=== PATIENT | male | born 1975 | race Caucasian/White ===

== ENCOUNTER 2018-08-02 12:53 | Observation (INO) | payer OTHER ==
[~2018-08-02] VITALS: Ht 182.9 cm; Wt 72.6 kg
[2018-08-02 13:49] LABS: Source, Urine Clean Catch
[2018-08-02 13:58] LABS: BASOPHILS ABSOLUTE AUTO 0.05 K/mm3 (0.00-0.23); BASOPHILS PERCENT AUTO 1 % (0-2); EOSINOPHILS ABSOLUTE AUTO 0.13 K/mm3 (0.00-0.68); EOSINOPHILS PERCENT AUTO 3 % (0-6); Hematocrit 42.8 % (37.0-53.0); Hemoglobin 14.2 g/dL (13.5-17.5); IMMATURE GRAN PERCENT AUTO 0 % (0-1); LYMPHOCYTES PERCENT AUTO 38 % (21-46); MONOCYTES ABSOLUTE AUTO 0.37 K/mm3 (0.16-1.47); MONOCYTES PERCENT AUTO 9 % (4-13); Mean Corpuscular HGB 29.8 pg (26.0-34.0); Mean Corpuscular HGB Conc 33.2 g/dL (31.5-36.5); Mean Corpuscular Volume 90 fL (80-100); Mean Platelet Volume 11.5 fL (9.1-12.4); NEUTROPHILS ABSOLUTE AUTO 1.88 K/mm3 (1.96-9.15); NEUTROPHILS PERCENT AUTO 48 % (41-73); Platelet Count 156 K/mm3 (150-400); RDW Coefficient Variation 12.4 % (11.7-14.2); RDW Standard Deviation 41.3 fL (35.1-46.3); Red Blood Cell Count 4.76 M/mm3 (4.30-5.90); White Blood Cell Count 3.93 K/mm3 (4.00-11.30)
[2018-08-02 14:01] LABS: Bilirubin, Urine Neg (Neg); Blood, Urine Neg (Neg); Glucose Qualitative, Urine Neg (Neg); Ketones, Urine Neg (Neg); Leukocyte Esterase, Urine Neg (Neg); Nitrite, Urine Neg (Neg); Protein, Urine Neg (Neg); Urobilinogen, Urine NORM (Normal)
[2018-08-02 14:14] LABS: Appearance, Urine Clear (Clear); Color, Urine Yellow (P-Yellow)
[2018-08-02 14:31] LABS: Ethanol (Alcohol), Blood, Med <3 mg/dL
[2018-08-02 14:32] LABS: Alanine Aminotransfer (ALT/SGP 41 U/L (12-78); Albumin, Blood 3.7 g/dL (3.4-5.0); Albumin/Globulin Ratio 1.1 (0.8-1.8); Alk Phos 63 U/L (50-136); Anion Gap 5 mmol/L (6-16); Aspartate Aminotrans (AST/SGOT 36 U/L (12-37); Bilirubin, Total 0.4 mg/dL (0.1-1.0); Blood Urea Nitrogen 20 mg/dL (8-24); Bun/Creatinine Ratio 22.3 (12.0-20.0); CO2, Blood 29 mmol/L (21-32); Calcium, Blood 8.4 mg/dL (8.5-10.1); Chloride, Blood 106 mmol/L (98-108); Free Thyroxine 0.76 ng/dL (0.70-1.60); Globulin, Blood 3.4 g/dL (2.2-4.0); Glomerular Filtration Rate >60 (60-); Glucose, Blood 111 mg/dL (70-99); Potassium, Blood 4.4 mmol/L (3.5-5.5); Salicylate 1.8 mg/dL (2.8-20.0); Sodium, Blood 140 mmol/L (136-145); Total Protein, Blood 7.1 g/dL (6.4-8.2)
[2018-08-02 14:34] LABS: Thyroid Stimulating Hormone 0.764 uIU/mL (0.360-4.800)
[2018-08-02 14:39] LABS: Acetaminophen, Random <2.0 ug/mL (10.0-30.0)
[2018-08-02 15:16] LABS: U Amphetamine Screen Not Detected; U Barbituate Screen Not Detected; U Benzodiazapine Screen Not Detected; U Buprenorphine Screen Not Detected; U Cannabinoids Screen DETECTED; U Cocaine Screen Not Detected; U Methadone Screen Not Detected; U Methamphetamine Screen Not Detected; U Opiates Screen Not Detected; U Oxycodone Screen Not Detected; U Phencyclidine Screen Not Detected; U Propoxyphene Screen Not Detected
== END 2018-08-05 15:15 | disposition home or self-care (01) ==
LOC: ER 12:53 → EOR 12:54
PROVIDERS: ADMIT Emergency Medicine
DX: F12.959 Cannabis use, unspecified with psychotic disorder, unspecified (principal); R45.1 Restlessness and agitation; F17.200 Nicotine dependence, unspecified, uncomplicated
CPT/HCPCS: 36415; 80053; 81003; 84439; 84443; 85025; 99285; G0378; G0480; Q3014

== ENCOUNTER 2022-03-01 09:53 | Emergency (ER) | payer OTHER ==
[~2022-03-01] VITALS: Ht 182.9 cm; Wt 90.7 kg
[2022-03-01] MEDS ORDERED: IBUP800 PO (11:08)
[2022-03-01] MEDS ORDERED: Robaxin750 MG PO (11:08)
== END 2022-03-01 11:17 | disposition home or self-care (01) ==
LOC: ER 09:53
DX: M54.50 Low back pain, unspecified (principal); F17.200 Nicotine dependence, unspecified, uncomplicated
CPT/HCPCS: 96372; 99283-25; A9270; J1885

== ENCOUNTER 2022-09-20 18:31 | Emergency (ER) | payer OTHER ==
[~2022-09-20] VITALS: Ht 180.3 cm; Wt 95.2 kg
[~2022-09-20 18:31] MED LIST: IBUP800 PO; Robaxin750 MG PO
[2022-09-20 18:41] VITALS: BP 135/102
== END 2022-09-20 20:15 | disposition home or self-care (01) ==
LOC: ER 18:31
DX: M25.561 Pain in right knee (principal); M25.531 Pain in right wrist; M79.671 Pain in right foot; F17.200 Nicotine dependence, unspecified, uncomplicated; W01.0XXA Fall on same level from slipping, tripping and stumbling without subsequent striking against object, initial encounter
CPT/HCPCS: 73110; 73562-RT; 73630; 99283-25

== ENCOUNTER → 2024-01-04 | Outpatient (CLI) | payer OTHER ==
[2024-01-04 10:16] LABS: BASOPHILS ABSOLUTE AUTO 0.07 K/mm3 (0.00-0.23); BASOPHILS PERCENT AUTO 1 % (0-2); EOSINOPHILS ABSOLUTE AUTO 0.18 K/mm3 (0.00-0.68); EOSINOPHILS PERCENT AUTO 3 % (0-6); Hematocrit 48.4 % (37.0-53.0); Hemoglobin 16.5 g/dL (13.5-17.5); IMMATURE GRAN ABSOLUTE AUTO 0.01 K/mm3 (0.00-0.10); IMMATURE GRAN PERCENT AUTO 0 % (0-1); LYMPHOCYTES ABSOLUTE AUTO 2.21 K/mm3 (0.84-5.20); LYMPHOCYTES PERCENT AUTO 42 % (21-46); MONOCYTES ABSOLUTE AUTO 0.42 K/mm3 (0.16-1.47); MONOCYTES PERCENT AUTO 8 % (4-13); Mean Corpuscular HGB 29.2 pg (26.0-34.0); Mean Corpuscular HGB Conc 34.1 g/dL (31.5-36.5); Mean Corpuscular Volume 86 fL (80-100); Mean Platelet Volume 10.8 fL (9.1-12.4); NEUTROPHILS ABSOLUTE AUTO 2.36 K/mm3 (1.96-9.15); NEUTROPHILS PERCENT AUTO 45 % (41-73); Platelet Count 187 K/mm3 (150-400); RDW Coefficient Variation 12.8 % (11.7-14.2); RDW Standard Deviation 39.3 fL (35.1-46.3); Red Blood Cell Count 5.65 M/mm3 (4.30-5.90); White Blood Cell Count 5.25 K/mm3 (4.00-11.30)
[2024-01-04 10:31] LABS: Albumin, Blood 3.6 g/dL (3.4-5.0); Albumin/Globulin Ratio 0.9 (0.8-1.8); Bilirubin, Total 0.2 mg/dL (0.1-1.0); Calcium, Blood 9.2 mg/dL (8.5-10.1); Creatinine, Blood 1.07 mg/dL (0.60-1.20); Globulin, Blood 3.9 g/dL (2.2-4.0); Potassium, Blood 4.5 mmol/L (3.5-5.5); Total Protein, Blood 7.5 g/dL (6.4-8.2)
== END ==
LOC: LAB 10:11 → LAB SHORT 10:11
PROVIDERS: Physician Assistant Surgical
DX: R10.9 Unspecified abdominal pain (principal)
CPT/HCPCS: 80053; 85025

== ENCOUNTER 2024-02-05 16:35 | Observation (INO) | payer OTHER ==
[~2024-02-05] VITALS: Ht 177.8 cm; Wt 104.3 kg
[2024-02-05 17:27] LABS: Source, Urine Clean Catch
[2024-02-05 17:38] LABS: BASOPHILS ABSOLUTE AUTO 0.05 K/mm3 (0.00-0.23); BASOPHILS PERCENT AUTO 1 % (0-2); EOSINOPHILS ABSOLUTE AUTO 0.15 K/mm3 (0.00-0.68); EOSINOPHILS PERCENT AUTO 2 % (0-6); Hematocrit 46.1 % (37.0-53.0); Hemoglobin 15.5 g/dL (13.5-17.5); IMMATURE GRAN ABSOLUTE AUTO 0.01 K/mm3 (0.00-0.10); IMMATURE GRAN PERCENT AUTO 0 % (0-1); LYMPHOCYTES ABSOLUTE AUTO 2.01 K/mm3 (0.84-5.20); LYMPHOCYTES PERCENT AUTO 27 % (21-46); MONOCYTES ABSOLUTE AUTO 0.69 K/mm3 (0.16-1.47); MONOCYTES PERCENT AUTO 9 % (4-13); Mean Corpuscular HGB 29.2 pg (26.0-34.0); Mean Corpuscular HGB Conc 33.6 g/dL (31.5-36.5); Mean Corpuscular Volume 87 fL (80-100); Mean Platelet Volume 10.6 fL (9.1-12.4); NEUTROPHILS ABSOLUTE AUTO 4.62 K/mm3 (1.96-9.15); NEUTROPHILS PERCENT AUTO 61 % (41-73); Platelet Count 178 K/mm3 (150-400); RDW Coefficient Variation 12.3 % (11.7-14.2); RDW Standard Deviation 39.2 fL (35.1-46.3); White Blood Cell Count 7.53 K/mm3 (4.00-11.30)
[2024-02-05 17:39] LABS: Appearance, Urine Clear (Clear); Bilirubin, Urine Neg (Neg); Blood, Urine Neg (Neg); Glucose Qualitative, Urine Neg (Neg); Ketones, Urine Neg (Neg); Leukocyte Esterase, Urine Neg (Neg); Nitrite, Urine Neg (Neg); Protein, Urine Neg (Neg); Urobilinogen, Urine NORM (Normal)
[2024-02-05 17:47] LABS: Color, Urine Pale Yellow (P-Yellow)
[2024-02-05 18:00] LABS: U Amphetamine Screen Not Detected; U Barbituate Screen Not Detected; U Benzodiazapine Screen Not Detected; U Buprenorphine Screen Not Detected; U Cannabinoids Screen Not Detected; U Cocaine Screen Not Detected; U Methadone Screen Not Detected; U Methamphetamine Screen Not Detected; U Opiates Screen Not Detected; U Oxycodone Screen Not Detected; U Phencyclidine Screen Not Detected
[2024-02-05 18:08] LABS: Salicylate 2.1 mg/dL (2.8-20.0)
[2024-02-05 18:20] LABS: Ethanol (Alcohol), Blood, Med <3 mg/dL
[2024-02-05 18:28] LABS: Acetaminophen, Random <2.0 ug/mL (10.0-30.0); Alanine Aminotransfer (ALT/SGP 34 U/L (12-78); Albumin, Blood 3.7 g/dL (3.4-5.0); Alk Phos 84 U/L (50-136); Anion Gap 10 mmol/L (3-11); Aspartate Aminotrans (AST/SGOT 26 U/L (12-37); Bilirubin, Total 0.4 mg/dL (0.1-1.0); Blood Urea Nitrogen 17 mg/dL (8-24); Bun/Creatinine Ratio 17.1 (12.0-20.0); CO2, Blood 30 mmol/L (21-32); Calcium, Blood 8.7 mg/dL (8.5-10.1); Chloride, Blood 101 mmol/L (98-108); Creatinine, Blood 0.99 mg/dL (0.60-1.20); Globulin, Blood 3.8 g/dL (2.2-4.0); Glomerular Filtration Rate 95 (60-); Glucose, Blood 81 mg/dL (70-99); Potassium, Blood 3.6 mmol/L (3.5-5.5); Sodium, Blood 137 mmol/L (136-145); Total Protein, Blood 7.5 g/dL (6.4-8.2)
[2024-02-05] MEDS ORDERED: LORazepam 1 MG Tab PO ONE (18:50)
[2024-02-05 19:44] LABS: Influenza A, PCR NEGATIVE (NEGATIVE); Influenza B, PCR NEGATIVE (NEGATIVE); Resp Syncytial Virus, PCR NEGATIVE (NEGATIVE); SARS-Cov-2 (COVID-19) PCR, MMC NEGATIVE (NEGATIVE)
[2024-02-06 08:54] VITALS: BP 134/90
[2024-02-06] MEDS ORDERED: Ibuprofen 400 MG Tab PO ONE (14:20)
== END 2024-02-06 15:05 | disposition other institution (70) ==
LOC: ER 16:35 → EOR 16:36
PROVIDERS: Physician Assistant; ADMIT Emergency Medicine
DX: F33.3 Major depressive disorder, recurrent, severe with psychotic symptoms (principal); R45.851 Suicidal ideations; F17.210 Nicotine dependence, cigarettes, uncomplicated
CPT/HCPCS: 0241U; 36415; 80053; 80320; 81003; 85025; 86592; 93005; 93010; 99285-25; A9270; G0378; G0480

== ENCOUNTER 2024-02-06 10:06 | Inpatient (IN) | payer OTHER ==
[2024-02-06] MEDS ORDERED: Acetaminophen 325 MG TABLET PO PRN (12:10)
[2024-02-06] MEDS ORDERED: Ibuprofen 600 MG Tab PO PRN (12:10)
[2024-02-06] MEDS ORDERED: Aluminum Hydroxide 320MG/5ML 473 ML PO PRN (12:15)
[2024-02-06] MEDS ORDERED: Zolpidem Tartrate 5 MG Tab PO PRN (12:15)
[2024-02-06] MEDS ORDERED: FLU VACC TS2024-25(6MOS UP)/PF 45 MCG/0.5 ML SYRINGE IM SCH (12:15)
[2024-02-06 15:23] VITALS: BP 147/99
[2024-02-06 16:11] VITALS: BP 147/99
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
--- NOTE | 2024-02-06 20:53 | NUR ---
Patient very anxious at HS regarding increasing anxiety and racing thoughts that seem to get worse once he lays down and tries to sleep. Will notify MD regarding situation. Currently, patient only has Ambien at bedtime. Will continue monitoring for safety and any escalation of symptoms. Order received for Seroquel. Will give as soon as available.
[2024-02-06] MEDS ORDERED: QUEtiapine Fumarate 200 MG Tab PO ONE (21:00)
[2024-02-06 22:11] VITALS: BP 151/93
--- NOTE | 2024-02-06 22:18 | NUR ---
pATIENT RESTING COMFORTABLY. STATES HE HAS NOT HAD SI SINCE LAST ASSESSMENT. STILL C/O INABILITY TO STOP THINKING ABOUT HIS AND THE HEALTH OF HIS MOTHER WHO HAS BEEN NEWLY DIAGNOSED WITH CANCER AND PLAYS AN INTEGRAL ROLE IN HELPING HIM RAISE HIS 9 YEAR OLD SON. STATES HE DOES FEEL BETTER NOW THAN AN HOUR AGO BEFORE HE TOOK THE SEROQUEL. WILL CONTINUE CLOSE MONITORING EVERY 15 MINUTES FOR SAFETY
--- NOTE | 2024-02-07 04:22 | NUR ---
Patient is A&OX4, pleasant and cooperative with cares. He was anxious about trying to lay down and go to sleep with the racing thoughts he had been having with regard to his family. Order for Seroquel received and given and patient is having what appears to be a very restful sleep. Patient stated he did not feel suicidal at time of assessment. He stated he is still in mourning for his , and his mother who shares caregiving with him for his young son was just recently diagnosed with cancer. Will continue close monitoring every 15 minutes for comfort and safety.
[2024-02-07 07:40] VITALS: BP 139/82
[2024-02-07] MEDS ORDERED: Folic Acid 1 MG TAB PO SCH (09:00)
[2024-02-07] MEDS ORDERED: Thiamine HCl 100 MG Tab PO SCH (09:00)
[2024-02-07] MEDS ORDERED: Multivitamins 1 Tab PO SCH (09:00)
--- NOTE | 2024-02-07 17:00 | NUR ---
SHIFT SUMMARY PT PLEASANT AND COOPERATIVE THIS SHIFT. PT PARTICIPATED IN GROUPS AND ENGAGED WITH PEERS AND STAFF. PT DENIES SI/HI OR AVH THIS SHIFT ALTHOUGH CONTINUES TO REPORT RACING THOUGHTS IN HIS HEAD. PT REPORTS DICUSSED WITH PROVIDER AND WILL START ANTIDEPRESSANT TOMORROW. PT REQUESTED CALL TO MOM TO INFORM OF PT ADMIT TO BHU THAT WAS COMPLETED BY THIS NURSE. PT INFORMED MOM DID WELL IN SURGERY AND SON IS DOING FINE. NO ACUTE CHANGES THIS SHIFT AND WILL CONTINUE TO MONITOR AND PROVIDE SUPPORT NECESSARY
[2024-02-07 20:40] VITALS: BP 126/85
[2024-02-07] MEDS ORDERED: QUEtiapine Fumarate 200 MG Tab PO SCH (21:00)
--- NOTE | 2024-02-08 04:17 | NUR ---
SHIFT SUMMARY PT HAS DENIED ANY SI, HI OR AVH. HE STATES THAT HE IS SAD BUT IS FEELING BETTER AND REPORTS THAT HE HAS HAD LESS RACING THOUGHTS. PT WAS PLEASANT AND COOPERATIVE WITH CARE. HE WAS IN MILIEU, WATCHING MOVIE WITH GROUP AND HAD EVENING SNACK. HE WENT TO BED AROUND 2114 AND HAS APPEARED TO BE SLEEPING, EYES CLOSED, RESPIRATIONS EVEN AND UNLABORED. Q15 MINUTE CHECKS WILL CONTINUE PER UNIT PROTOCOL.
[2024-02-08 07:57] VITALS: BP 130/92
[2024-02-08] MEDS ORDERED: BuPROPion HCl SR 100 MG TabCR PO SCH (08:25)
--- NOTE | 2024-02-08 19:06 | NUR ---
PT DENIED SI, HI, AVH, ANXIETY AND PAIN, HE REPORTED "I FEEL GOOD...NO RACING THOUGHTS RIGHT NOW. HE HAS PARTICIPATED IN GROUPS AND BEEN OUT IN THE PT MILIEU ALL DAY, SOMEIMES WALKING THE HALLS. HE HAS BEEN PLEASANT AND COOPERATIVE WITH CARE. HE IS ALERT AND ORIENTED.
[2024-02-08 21:10] VITALS: BP 135/83
--- NOTE | 2024-02-09 04:43 | NUR ---
SHIFT SUMMARY: ASSUMED CARE FROM PRIOR SHIFT. PATIENT ASSESSED IN BED. HE IS A/OX4, ABLE TO VOICE NEEDS. HE IS COMPLIANT WITH ASSESSMENT AND MEDICATIONS. HE TELLS ME HE IS EXHAUSTED AND "DOESN'T WANT TO HAVE A LONG CONVERSATION". HE CURRENTLY DENIES SI, VH AND AH. HE SLEEPS THROUGH THE NIGHT. NO NOTED BEHAVIORS OR ISSUES. WE WILL CONTINUE TO MONITOR EVERY 15 MINS FOR SAFETY AND COMFORT.
--- NOTE | 2024-02-09 06:26 | NUR ---
PATIENT CONTINUES TO SLEEP. NO NOTED BEHAVIORS OR ISSUES.
--- NOTE | 2024-02-09 18:06 | NUR ---
SHIFT SUMMARY PT A/O X4; PLEASANT AND COOPERATIVE WITH CARE. PT DENIES SI, HI, OR ANY HALLUCINATIONS. HE REPORTS THAT HE IS DOING MUCH BETTER TODAY AND HAS ATTENDED ALL GROUPS. NO COMPLAINTS OR BEHAVIORS THIS SHIFT. MONITORED VIA Q15 ROUNDING FOR SAFETY.
[2024-02-09 20:36] VITALS: BP 150/83
--- NOTE | 2024-02-10 04:42 | NUR ---
SHIFT SUMMARY Participates in groups and socializes appropriately with peers. Denies SI/HI/AVH. Calm. Pleasant during interactions. Pt reports bilateral leg discomfort/muscle pain ("it feels like the growing pains I had as a kid"). Onset coincides with starting Wellbutrin, but unclear if related. Denies other new symptoms/possible side effects. PRN ibuprofen available, but pt was in bed asleep before offered. Pt denied that the muscle aches affected his sleep last night. Will monitor and reassess when pt is awake.
[2024-02-10 07:38] VITALS: BP 124/85
--- NOTE | 2024-02-10 10:27 | NUR ---
PT A/O X4. PLEASANT AND COOPEERATIVE. WALKS IN THE HALLS TO HELP HIS BACK OF THIGHS PAIN. PAIN IS 6/10 AND CONTANT. GIVEN MORTRIN AND IT WAS NOT VERY HELPFUL.. FOUND OUT THAT PT HAS BEEN DOING LEG SQUATS WHILE BEING HERE. DR EXPLAINED THAT THE PAIN TAKE SOME TIME TO GO AWAY HIS THIGHS WERE VERY TIGHT ON EXMINATION. PT SAID OK AND LAUGHED AT HIMSELF. SAID HE HASN'T BEEN HAVING ANY RACEY THOUGHS THE LAST COUPLE DAYS. SAID HE IS SAD AND HE MISSES HIS SON AND MOM. HE SAID HE WILL BE FINE. WILL CONTINUE TO MONITOR.
[2024-02-10 10:44] LABS: Albumin, Blood 3.5 g/dL (3.4-5.0); Bilirubin, Total 0.2 mg/dL (0.1-1.0); Bun/Creatinine Ratio 22.3 (12.0-20.0); Creatinine, Blood 1.03 mg/dL (0.60-1.20); Globulin, Blood 3.4 g/dL (2.2-4.0); Potassium, Blood 4.3 mmol/L (3.5-5.5); Total Protein, Blood 6.9 g/dL (6.4-8.2)
--- NOTE | 2024-02-10 17:10 | NUR ---
SHIFT SUMMARY. PT HAD A GOOD DAY. PAIN IN LEGS LESS PRESENT WHEN OUT OF BED. INTERACTED WITH PEERS THROUGH OUT THE DAY. STILL SAD AND MISSES HIS SON. WILL CONTINUE TO MONITOR.
[2024-02-10 20:38] VITALS: BP 146/80
--- NOTE | 2024-02-11 04:22 | NUR ---
SHIFT SUMMARY Pt reports mood as "happy" today. Affect congruent. Positive social interactions with other male peers. Watching football until end of evening. Sleeping well overnight. He is feeling optimistic d/t response from Seroquel. Denies side effects. The muscle aches he reported last shift were found to be r/t performing squats during a group one morning. Pain has resolved. No new needs reported today.
--- NOTE | 2024-02-11 07:58 | NUR ---
PT UP AND EATING BREAKFST NOW. IN A GOOD MOOD. DENIES SI, HI,AND A/V/H. SAYS HE STILL IS SAD. LEG PAIN NOT PRESENT THIS AM. HE THINKS HE MAY BE DISCHARGED TODAY. HE WANTS TO TAKE HIS SO FISHING. WILL CONTINUE TO MONITOR.
[2024-02-11 08:45] VITALS: BP 134/80
[2024-02-11] MEDS ORDERED: QUET200 PO (08:51)
[2024-02-11] MEDS ORDERED: BUPR150ER PO (08:51)
--- NOTE | 2024-02-11 11:22 | NUR ---
DISCHARGED AT 11:10 TO HOME. AMBULATED TO MOTHER'S CAR. A/O X4. GIVEN DISCHAGE INSTRUCTIONS, EDUCATION, PRESCRIPTIONS FAXED TO [facility] AND VERIFED THAT THEY RECEIVED THE FAX BY [facility] IN PHARMACY, AND BELONGINGS RETURNED TO PT. PT VERBALIZED UNDERSTANDING OF INSTRUCTIONS. PT ALSO HAS APPT ON 02/15/24 FOR FOLLOW UP.
== END 2024-02-11 11:10 | disposition home or self-care (01) | DRG 885 ==
LOC: BHU 10:06
PROVIDERS: ADMIT Student in an Organized Health Care Education/Training Program
DX: F33.3 Major depressive disorder, recurrent, severe with psychotic symptoms (principal); R45.851 Suicidal ideations; Z79.899 Other long term (current) drug therapy; F15.90 Other stimulant use, unspecified, uncomplicated
CPT/HCPCS: 36415; 80053; 83735; A9270

== ENCOUNTER 2024-06-17 08:57 | Observation (INO) | payer OTHER ==
[~2024-06-17] VITALS: Ht 182.9 cm; Wt 99.8 kg
[~2024-06-17 08:57] MED LIST changes: +BUPR150ER PO; +QUET200 PO
[2024-06-17 09:46] VITALS: BP 139/99
[2024-06-17 10:05] LABS: Source, Urine Clean Catch
[2024-06-17 10:15] LABS: BASOPHILS ABSOLUTE AUTO 0.05 K/mm3 (0.00-0.23); BASOPHILS PERCENT AUTO 1 % (0-2); EOSINOPHILS ABSOLUTE AUTO 0.13 K/mm3 (0.00-0.68); EOSINOPHILS PERCENT AUTO 2 % (0-6); Hematocrit 48.8 % (37.0-53.0); Hemoglobin 16.7 g/dL (13.5-17.5); IMMATURE GRAN ABSOLUTE AUTO 0.01 K/mm3 (0.00-0.10); IMMATURE GRAN PERCENT AUTO 0 % (0-1); LYMPHOCYTES ABSOLUTE AUTO 2.11 K/mm3 (0.84-5.20); LYMPHOCYTES PERCENT AUTO 35 % (21-46); MONOCYTES ABSOLUTE AUTO 0.46 K/mm3 (0.16-1.47); MONOCYTES PERCENT AUTO 8 % (4-13); Mean Corpuscular HGB 29.1 pg (26.0-34.0); Mean Corpuscular HGB Conc 34.2 g/dL (31.5-36.5); Mean Corpuscular Volume 85 fL (80-100); Mean Platelet Volume 11.1 fL (9.1-12.4); NEUTROPHILS ABSOLUTE AUTO 3.24 K/mm3 (1.96-9.15); NEUTROPHILS PERCENT AUTO 54 % (41-73); Platelet Count 202 K/mm3 (150-400); RDW Coefficient Variation 12.7 % (11.7-14.2); RDW Standard Deviation 38.9 fL (35.1-46.3); Red Blood Cell Count 5.73 M/mm3 (4.30-5.90)
[2024-06-17 10:17] LABS: Appearance, Urine Clear (Clear); Bilirubin, Urine Neg (Neg); Blood, Urine Neg (Neg); Glucose Qualitative, Urine Neg (Neg); Ketones, Urine Neg (Neg); Leukocyte Esterase, Urine Neg (Neg); Nitrite, Urine Neg (Neg); Protein, Urine Neg (Neg); Urobilinogen, Urine NORM (Normal)
[2024-06-17 10:34] LABS: Color, Urine Pale Yellow (P-Yellow)
[2024-06-17 10:41] LABS: Ethanol (Alcohol), Blood, Med <3 mg/dL; Salicylate <1.7 mg/dL (2.8-20.0)
[2024-06-17 10:43] LABS: Acetaminophen, Random <2.0 ug/mL (10.0-30.0); Alanine Aminotransfer (ALT/SGP 37 U/L (12-78); Albumin, Blood 3.7 g/dL (3.4-5.0); Alk Phos 76 U/L (50-136); Anion Gap 10 mmol/L (3-11); Aspartate Aminotrans (AST/SGOT 21 U/L (12-37); Bilirubin, Total 0.2 mg/dL (0.1-1.0); Blood Urea Nitrogen 14 mg/dL (8-24); Bun/Creatinine Ratio 15.1 (12.0-20.0); CO2, Blood 23 mmol/L (21-32); Calcium, Blood 8.6 mg/dL (8.5-10.1); Chloride, Blood 108 mmol/L (98-108); Creatinine, Blood 0.93 mg/dL (0.60-1.20); Globulin, Blood 3.8 g/dL (2.2-4.0); Glomerular Filtration Rate 101 (60-); Glucose, Blood 121 mg/dL (70-99); Sodium, Blood 137 mmol/L (136-145); Total Protein, Blood 7.5 g/dL (6.4-8.2)
[2024-06-17 11:44] LABS: U Amphetamine Screen Not Detected; U Barbituate Screen Not Detected; U Benzodiazapine Screen Not Detected; U Buprenorphine Screen Not Detected; U Cannabinoids Screen Not Detected; U Cocaine Screen Not Detected; U Methadone Screen Not Detected; U Methamphetamine Screen Not Detected; U Opiates Screen Not Detected; U Oxycodone Screen Not Detected; U Phencyclidine Screen Not Detected
[2024-06-17] MEDS ORDERED: HydrOXYzine Pamoate 25 MG Cap PO ONE (13:50)
== END 2024-06-17 16:02 | disposition other institution (70) ==
LOC: ER 08:57 → EOR 08:58
PROVIDERS: Physician Assistant; ADMIT Student in an Organized Health Care Education/Training Program
DX: R45.851 Suicidal ideations (principal); F99 Mental disorder, not otherwise specified; F17.210 Nicotine dependence, cigarettes, uncomplicated
CPT/HCPCS: 36415; 80053; 80320; 81003; 85025; 93005; 93010; 99285-25; G0378; G0480; Q0177

== ENCOUNTER 2024-06-17 12:12 | Inpatient (IN) | payer OTHER ==
[~2024-06-17] VITALS: Ht 180.3 cm; Wt 91.1 kg
[2024-06-17] MEDS ORDERED: HydrOXYzine Pamoate 50 MG Cap PO PRN (15:15)
[2024-06-17] MEDS ORDERED: Ibuprofen 600 MG Tab PO PRN (15:15)
[2024-06-17] MEDS ORDERED: Calcium Carbonate 500 MG Tab Chew PO PRN (15:15)
[2024-06-17] MEDS ORDERED: OLANZapine ODT 10 MG Tab MM PRN (15:15)
[2024-06-17] MEDS ORDERED: Polyethylene Glycol 3350 17 gm PO PRN (15:15)
[2024-06-17] MEDS ORDERED: TraZODone HCl 50 MG Tab PO PRN (15:15)
[2024-06-17] MEDS ORDERED: Aluminum Hydroxide 320MG/5ML 473 ML PO PRN (15:20)
[2024-06-17] MEDS ORDERED: Acetaminophen 325 MG TABLET PO PRN (15:20)
[2024-06-17] MEDS ORDERED: Melatonin 3 MG Tab PO PRN (15:20)
[2024-06-17] MEDS ORDERED: Ondansetron 4 MG SoluTab MM PRN (15:25)
[2024-06-17 16:04] VITALS: BP 132/84
[2024-06-17 16:22] VITALS: BP 132/84
[2024-06-17] MEDS ORDERED: buPROPion HCL 150 MG TAB.SR.12H PO SCH (17:00)
--- NOTE | 2024-06-17 17:56 | NUR ---
ADMISSION ASSESSMENT: REPORT TAKEN FROM EFFIE CAMPOS/RUPA TIJERINA. PT CAME IN VOLUNTARILY DO TO "SONAR WEAPONS THAT PLACED VOICES IN MY HEAD TELLING ME TO JUMP OFF OF A BRIDGE." PT REPORTED THAT THIS HAS BEEN HAPPENING FOR SEVERAL WEEKS. HE REPORTED "THIS IS NOT ME...IT'S THEM!" HE IS CALM AND COOPERATIVE WITH CARE. PT IS STAYING ON THE FRING OF THE MILIEU AT THIS TIME.
--- NOTE | 2024-06-17 18:45 | NUR ---
PT HAS BEEN RESPONDING TO INTERNAL STIMULI...HE ALSO TURNS HIS HEAD WHEN TALKING TO THE DIFFERENT VOICES. THEY ARE SHORT ANSWERS THAT HE GIVES THEM LIKE, "NOT YOU...NO...NOT NOW.
[2024-06-17 20:15] VITALS: BP 118/86
[2024-06-17] MEDS ORDERED: QUEtiapine Fumarate 200 MG Tab PO SCH (21:00)
--- NOTE | 2024-06-18 05:30 | NUR ---
SHIFT SUMMARY PT DENIES SI, HI, AND AVTH. PT HAS PARANOID DELUSIONS AND STATES, "THERE ARE LASERS SHOOTING INTO MY HEAD FROM SONAR WEAPONS.", PT UNABLE TO ARTICULATE ANYTHING ELSE ABOUT THE SONAR WEAPONS. PT CAME TO SNACKTIME AND SLEPT/RESTED QUIETLY FOR REST OF NIGHT. NO ACUTE EVENTS.
[2024-06-18 07:53] VITALS: BP 120/78
[2024-06-18] MEDS ORDERED: Multivitamins 1 Tab PO SCH (09:00)
--- NOTE | 2024-06-18 13:04 | NUR ---
SHIFT ASSESSMENT: PT DENIED SI AND SI, HE ENDORSED AUDITORY HALLUCINATIONS, "IT'S THE SONAR LAZERS PUTTING THOUGHTS IN MY HEAD...THEY'RE TELLING ME TO CLIMB UP ON THE ROOF. MY MOOD IS NOT AGRIVATED OR HAPPY." 11:36 PT COMPLAINED OF ANXIETY AND WAS GIVEN ZYPREXA 10MG. PT HAS ATTENDED GROUPS THIS MORNING AND IS NOW RESTING IN BED.
--- NOTE | 2024-06-18 13:54 | NUR ---
MASS SCORE FOR ZYPREXA DOSE WAS 7.
[2024-06-18 19:42] VITALS: BP 123/83
[2024-06-18] MEDS ORDERED: OLANZapine 10 MG Tab PO SCH (21:00)
--- NOTE | 2024-06-19 04:13 | NUR ---
PATIENT WAS IN BED RESTING AT THE BEGINNING OF THE SHIFT. HE DID NOT AWAKEN WHEN HIS NAME WAS CALLED SOFTLY. HE DID WAKE UP FOR SNACK TIME AND PARTICIPATED IN SNACK AND WRAP UP GROUP AT 1999. HE WAS PLEASANT AND COOPERATIVE WITH CARES. HE WAS COMPLIANT WITH EVENING MEDICATION ADMINISTRATION. HE DENIED THOUGHTS OF SUICIDAL IDEATION OR SELF HARMING. AFTER SNACK AND MEDICATION, HE WENT TO BED AND WAS NOTED TO BE RESTING QUIETLY WITH EYES CLOSED AND RESPIRATIONS CONFIRMED FOR THE REMAINDER OF THE SHIFT. CONTINUING TO MONITOR FOR SAFETY WITH Q15 MINUTE CHECKS.
[2024-06-19 08:24] VITALS: BP 130/79
--- NOTE | 2024-06-19 17:24 | NUR ---
SHIFT SUMMARY: PT A/O X4. PLEASANT AND COOPERATIVE. PT DENIES SI, HI, AND AVH. HAS PARTICIPATED IN ALL ACTIVITES TODAY. COMPLIANT IN MEALS ANS MEDICATIONS. PT STATES HE IS GETTING BETTER AND STRONGER. MOOD IS HAPPY AND JOYFUL. INTERACTS WELL WITH PEERS IN THE MILIEU. WILL CONTINUE TO MONITOR.
[2024-06-19 19:53] VITALS: BP 134/87
[2024-06-19] MEDS ORDERED: OLANZapine 10 MG Tab PO SCH (21:00)
--- NOTE | 2024-06-20 04:11 | NUR ---
SHIFT SUMMARY: PATIENT WAS UP IN THE MILIEU AT THE BEGINNING OF THE SHIFT. HE WALKED IN AND OUT OF THE DAY ROOM. HE ANSWERED QUESTIONS IN A LINEAR MANNER. HE WAS PLEASANT AND COOPERATIVE WITH CARES. HE DENIED THOUGHTS OF SUICIDAL IDEATION OR SELF HARMING. HE PARTICIPATED IN SNACK AND WRAP UP GROUP AT 1999. HE WAS COMPLIANT WITH EVENING MEDICATION ADMINISTRATION. HE WENT TO BED AFTER WRAP UP GROUP AND WAS NOTED TO BE RESTING QUIETLY WITH EYES CLOSED AND RESPIRATIONS CONFIRMED. CONTINUING TO MONITOR FOR SAFETY WITH Q15 MINUTE CHECKS.
[2024-06-20 08:24] LABS: CHOL/HDL RATIO 3.8; Cholesterol 188 mg/dL (50-200); HDL Cholesterol 50 mg/dL (>39); LDL/HDL RATIO 2.3; Low Density Lipoprotein Chol 115 mg/dL (0-110); Triglycerides 116 mg/dL (30-160); Very Low Density Lipoprot Chol 23 mg/dL (6-32)
--- NOTE | 2024-06-20 17:09 | NUR ---
sHIFT SUMMARY: PT A/O X4. DENIES TO BE SI, HI AND AVH. IS PLESANT AND COOPERATIVE. PT HAS PARTICIPATED IN GROUPS, MEALS AND IS MED COMPLIANT. MOOD IS HAPPY AND EUTHYMIC. PT UP IN GROUP ROOM WATCHING MOVIE WITH PEERS. WILL CONTINUE TO MONITOR.
--- NOTE | 2024-06-20 18:07 | NUR ---
PT NOTIFIED BY HIS MOTHER THAT SON IS IN THE EMERGENCY ROOM AND NEEDS TO BE ADMITTED FOR PSYCH IN THE [facility]. DR MICHAELS IS AWARE. PT TALKED WITH ABOUT THIS ISSUE. PT STATES THAT HE IS OK ABOUT THE SITUTATION HIS SON IS GETTING HELP NOW. WILL CONTINUE TO MONITOR.
[2024-06-20 19:10] VITALS: BP 123/84
--- NOTE | 2024-06-21 04:04 | NUR ---
SHIFT SUMMARY: PATIENT WAS IN THE MILIEU AT THE BEGINNING OF THE SHIFT, MOSTLY WALKING AROUND. HE WAS PLEASANT AND APPROPRIATE INTERACTING WITH STAFF AND PEERS. HE DENIED THOUGHTS OF SUICIDAL IDEATION OR SELF HARMING. HE PARTICIPATED IN 2000 SNACK AND WRAP UP GROUP. HE SPOKE OF COMMUNICATING WITH HIS SON TODAY. HE WAS COMPLIANT WITH MEDICATION ADMINISTRATION. HE DID NOT HAVE ANY EXPRESSED ISSUES OR CONCERNS THIS SHIFT. AFTER SNACK TIME, HE WENT TO BED AND WAS READING FOR A TIME, THEN RESTED QUIETLY WITH EYES CLOSED AND RESPIRATIONS CONFIRMED FOR THE REMAINDER OF THE SHIFT, RESPIRATIONS CONFIRMED. CONTINUING TO MONITOR FOR SAFETY WITH Q15 MINUTE CHECKS.
[2024-06-21 08:02] VITALS: BP 124/77
--- NOTE | 2024-06-21 16:08 | NUR ---
DAY SHIFT SUMMARY PT HAS BEEN VERY COOPERATIVE THROUGHOUT THE SHIFT AND HAS PARTICIPATED IN GROUPS AND MEALS, INTERACTING WITH HIS PEERS. HE DENIES SI/HI/AVH TODAY. STATES "I FEEL WELL RESTED ALTHOUGH I WOKE UP A FEW TIMES" THIS MORNING. NO CHANGES IN MEDICATIONS TODAY. PT DID STATE HE IS UNDER THE UNDERSTANDING THAT HE WILL D/C ON MONDAY. IN 10am MEETING PROVIDER STATED THAT "THAT'S QUESTIONABLE AT THIS POINT". PT HAS CONTINUED TO HAVE Q15 MIN SAFETY CHECKS THROUGHOUT THE DAY.
[2024-06-21 20:47] VITALS: BP 128/79
--- NOTE | 2024-06-22 04:59 | NUR ---
SHIFT SUMMARY NO ACUTE EVENTS OVERNIGHT. PT AT START OF SHIFT WENT TO SNACK TIME AND WATCHED A MOVIE AFTER W/ OTHER PT'S. PT DENIES SI, HI, AND AVTH. PT STATES, "I FEEL GOOD, HAPPY. THE MEDICATIONS ARE WORKING AND I'M NO LONGER HAVING DELUSIONS.". SLEPT/RESTED T/O NIGHT. PT DOES EXPRESS CONCERN OVER SON WHO WAS ADMITTED TO THE ER.
[2024-06-22 07:52] VITALS: BP 107/74
[2024-06-22] MEDS ORDERED: BuPROPion HCl SR 100 MG TabCR PO SCH (17:00)
--- NOTE | 2024-06-22 17:40 | NUR ---
SHIFT ASSESSMENT PT HAS HAD A VERY GOOD DAY, HE HAS BEEN UP ALL SHIFT IN THE MILIEU WITH HIS PEERS, HAS ENJOYED PLAYING CHESS WITH ANOTHER PT, ATTENDED GROUPS PROVIDED BY AN [facility], ALL MEALS AND HAS TAKEN MEDS WITHOUT ISSUE. HE DENIES SI/HI/AVH AND STATED THAT THE SCREAMING THOUGHTS ARE NOT THERE TODAY. PT ENDORSES "FEELING MUCH BETTER WITH ALL MEDS I'M TAKING" HE CONTINUES TO HAVE Q15 MIN SAFETY CHECKS
[2024-06-22 21:38] VITALS: BP 126/82
--- NOTE | 2024-06-23 05:13 | NUR ---
SHIFT SUMMARY NO ACUTE EVENTS OVERNIGHT. PT CONTINUES TO DENY SI, HI, AVTH. STATES, "HAPPY MY MEDS ARE WORKING. I'M NOT LONGER HAVING DELUSIONS THAT CONTROL MY THOUGHTS.". SLEPT/RESTED QUIETLY T/O NIGHT. INTERACTED W/ PEERS, WENT TO SNACK TIME, AND WATCHED MOVIE AT START OF SHIFT.
[2024-06-23 08:28] VITALS: BP 118/77
--- NOTE | 2024-06-23 16:19 | NUR ---
SHIFT SUMMARY LIKE YESTERDAY, PT HAS BEEN VERY COOPERATIVE DURING THIS SHIFT. HE HAS BEEN UP ALL DAY, PARTICIPATING IN ALL MEALS AND GROUPS. HE CLEARLY DENIED SI/HI/AVH THIS MORNING. HE HAS SPENT TIME ON THE PATIO AND READING A BOOK IN THE SUNSHINE. PT HAS CONTINUED TO RECEIVE Q15 MIN SAFETY CHECKS THROUGHOUT THE DAY.
[2024-06-23 22:03] VITALS: BP 133/91
--- NOTE | 2024-06-24 05:05 | NUR ---
SHIFT SUMMARY NO ACUTE EVENTS OVERNIGHT. PT CONTINUES TO DENY SI, HI, AVTH. STATES, "I'M DOING REALLY GOOD" AND EXPRESSES EXCITEMENT ABOUT MEDICATIONS WORKING AND RELIEF AT KNOWING WHERE SON IS. SLEPT/RESTED QUIETLY T/O NIGHT. WENT TO SNACK AND WATCHED MOVIE W/ PEERS.
[2024-06-24 08:21] VITALS: BP 134/81
--- NOTE | 2024-06-24 16:56 | NUR ---
SHIFT SUMMARY PT HAS BEEN UP ALL SHIFT, PARTICIPATING IN ALL GROUPS, MEALS, SNACKS. VERY POLITE AND COOPERATIVE WITH STAFF AND PEERS. HE DENIES SI/HI/AVH. HE WAS TOLD TODAY BY PROVIDER THAT HE CAN DC ON . HE IS OVER THE [place] EXCITED ABOUT THAT. HE HAS BEEN SPENDING A LOT OF TIME AT THE END OF THE [place] EXCERCISING. NO CHANGES IN MEDICATION, PT HAS HAD CONTINUING Q15 MIN SAFETY CHECKS THROUGHOUT THE SHIFT
--- NOTE | 2024-06-24 19:50 | NUR ---
IMPORTANT DISCHARGE INFORMATION PATIENT STATES MOM WILL PICK HIM UP. ROSENDO (MOM) [phone] PATIENT'S PCP IS CORINNE COLEMAN AT [facility]. PLEASE CALL FOR FOLLOW UP/ULYSSES. [facility] DOES THEIR OWN CASE MANAGEMENT/ULYSSES. PHARMACY: [facility]
[2024-06-24 20:00] VITALS: BP 121/76
--- NOTE | 2024-06-25 04:40 | NUR ---
SHIFT SUMMARY: PT A/O X4. DENIES SI, HI AND AVH. PT UP AND SOCIALIZING WITH OTHERS AT THE BEGINNING OF THE SHIFT. PT WENT TO WRAP UP GROUP AND HAD A SNACK. WENT TO GROUP ROOM AND WATCHED TV UNTIL BEDTIME. PT IS GLAD THAT HE WILL BE GOING HOME SOON. SLEPT WELL THROUGH THE NIGHT. WILL CONTINUE TO MONITOR.
[2024-06-25 08:13] VITALS: BP 122/83
--- NOTE | 2024-06-25 09:04 | NUR ---
IMPORTANT HOSPITAL DISCHARGE APPOINTMENT INFORMATION Patient is scheduled to meet with VIRGINIA Guerrero on Monday, July 01, 2024 at 1100 // [address], [place] [address] // [phone] ERIN entered appointment information into patient's discharge packet
--- NOTE | 2024-06-25 12:29 | NUR ---
POSTAL PRESCRIPTION INFORMATION Postal prescription paperwork completed and sent via [employer] per patient and A shoe parts caser request
--- NOTE | 2024-06-25 14:46 | NUR ---
IMPORTANT DISCHARGE TRANSPORTATION INFORMATION Patient truck is parked in ED parking lot. Patient to transport self to pharmacy and then home at discharge
[2024-06-25] MEDS ORDERED: OLAN20 MM (16:08)
[2024-06-25] MEDS ORDERED: MELA3 PO (16:08)
--- NOTE | 2024-06-25 17:45 | NUR ---
SHIFT SUMMARY PT A/O X4; PLEASANT AND COOPERATIVE WITH CARE. HE DENIES SI, HI, OR HALLUCINATIONS. HE REPORTS FEELING "SO MUCH BETTER" NOW THAT THE HALLUCINATIONS HAVE STOPPED. HE APPEARS OPTIMISTIC AND HIS AFFECT IS ELEVATED. HE ADHERES TO THE PLAN OF CARE AND HAS ATTENDED ALL GROUPS AND MEALS. PT TO DISCHARGE HOME TOMORROW AND WILL BE PICKED UP BY HIS MOTHER AT AROUND 1300.
[2024-06-25 20:00] VITALS: BP 124/80
--- NOTE | 2024-06-25 22:01 | NUR ---
PT A/O X4. UP IN THE GROUP ROOM AT THE BEGINING OF THE SHIFT WATCHING A MOVIE. PT DENIES SI/HI/AVH. STATES THAT HE "IS GREAT TODAY". PT IS EXCITED TO BE DISCHARGED TOMORROW. HE WILL BE GOING HOME WITH HIS MOTHER.DISCUSSED THE NEED TO FOLLOW UP WITH PCP AND MENTAL HEALTH CARE AND TO TAKE HIS MEDICATIOS DIRECTED.. HE SAID HE WOULD! PT IS ASLEEP AT THS TIME AND MONITORING Q 15 MINS, CONTINUES
--- NOTE | 2024-06-26 04:05 | NUR ---
END OF SHIFT UPDATE ASSUMED CARE OF PATIENT AT 0000. PT HAS GOTTEN UP A FEW TIMES THROUGHTOUT THE NIGHT TO CHECK THE TIME. HE CURRENTLY APPEARS TO BE SLEEPING, WITH RESPIRATIONS CONFIRMED. Q15 MINUTE CHECKS TO CONTINUE.
[2024-06-26 08:19] VITALS: BP 139/85
--- NOTE | 2024-06-26 12:52 | NUR ---
DISCHARGE NOTE: PT DISCHARGED HOME. STATED UNDERSTANDING OF DISCHARGE INSTRUCTIONS AND DENIED QUESTIONS. PT DENIED SI, HI AND AVH. BELONGINGS RETURNED BY JOSH SHERMAN. PT TRANSPORT ARRIVED, HE AMBULATED OUT OF THE UNIT WITHOUT DIFFICULTY. DISCHARGE INSTRUCTIONS AND BELONGINGS IN HAND.
== END 2024-06-26 12:50 | disposition home or self-care (01) | DRG 885 ==
LOC: BHU 12:12
PROVIDERS: ADMIT Student in an Organized Health Care Education/Training Program
DX: F33.3 Major depressive disorder, recurrent, severe with psychotic symptoms (principal); F17.290 Nicotine dependence, other tobacco product, uncomplicated; Z79.899 Other long term (current) drug therapy; Z79.1 Long term (current) use of non-steroidal anti-inflammatories (NSAID)
CPT/HCPCS: 36415; 80061; 83036; 86592; A9270